=== PATIENT | female | born 1995 | race Caucasian/White ===

== ENCOUNTER → 2016-08-26 | Outpatient (CLI) | payer OTHER ==
[~2016-08-26] MED LIST: ASCO500C PO; CALNTAB; CEPH500C PO; FERR1TAB36 PO
== END ==
LOC: HPND 12:40
PROVIDERS: ATTEND Obstetrics & Gynecology
DX: O99.333 Smoking (tobacco) complicating pregnancy, third trimester (principal); O35.1XX0 Maternal care for (suspected) chromosomal abnormality in fetus, not applicable or unspecified
CPT/HCPCS: 76816